=== PATIENT | male | born 1990 | race Hispanic/Latino ===

== ENCOUNTER 2017-08-20 16:04 | Emergency (ER) | payer SELFPAY ==
[2017-08-20] MEDS ORDERED: Sodium Chloride 0.9% 1,000 ML IV ONE (16:20)
[2017-08-20 16:35] LABS: BASO % 0.4 % (0.0-2.0); EOS % 0.2 % (0.0-4.0); HEMATOCRIT 38.8 % (35.0-51.0); LYMPH % 19.6 % (20.0-40.0); MEAN CELL VOLUME 90.2 fL (80.0-94.0); MEAN CORPUSCULAR HEMOGLOBIN 31.1 pg (27.0-31.0); MEAN CORPUSCULAR HGB CONC 34.5 g/dL (33.0-37.0); MEAN PLATELET VOLUME 7.6 fL (7.2-11.7); MONO # 0.8 K/uL (0.0-0.8); MONO % 7.5 % (0.0-10.0); RED CELL DISTRIBUTION WIDTH 13.8 % (11.5-14.5); WHITE BLOOD COUNT 10.4 K/uL (4.8-10.8)
[2017-08-20 16:50] LABS: ALB/GLOB RATIO 1.4 (1.0-2.1); ALCOHOL SERUM < 10 mg/dl (0-10); ALKALINE PHOSPHATASE 72 U/L (38-126); ALT/SGPT 34 U/L (21-72); AST/SGOT 28 U/L (17-59); BILIRUBIN,TOTAL 0.5 mg/dL (0.2-1.3); BLOOD UREA NITROGEN 24 mg/dL (9-20); CALCIUM 8.6 mg/dl (8.6-10.4); CARBON DIOXIDE 27 mmol/L (22-30); CHLORIDE 103 mmol/L (98-107); GFR AFRICAN-AMERICAN > 60; GLUCOSE,RANDOM 100 mg/dL (75-110); POTASSIUM 3.7 mmol/L (3.6-5.2); SODIUM 142 mmol/L (132-148); TOTAL PROTEIN 7.7 g/dL (6.3-8.3)
[2017-08-20] MEDS ORDERED: Sodium Chloride 0.9% 1,000 ML ONE (16:52)
[2017-08-20 17:09] VITALS: RESP 12
[2017-08-20 17:46] LABS: RBC URINE < 1 /hpf (0-3); URINE BACTERIA RARE (<OCC); URINE BILIRUBIN NEGATIVE (NEGATIVE); URINE BLOOD NEGATIVE (NEGATIVE); URINE COLOR Yellow (YELLOW); URINE GLUCOSE (UA) NORMAL (Normal); URINE KETONE 1+ mg/dL (NEGATIVE); URINE LEUKOCYTE ESTERASE NEG Leu/uL (Negative); URINE PROTEIN NEGATIVE (NEGATIVE); URINE UROBILINOGEN NORMAL mg/dL (0.2-1.0); WBC URINE 1 /hpf (0-5)
--- NOTE | 2017-08-20 18:33 | C.PDOC ---
History Of Present Illness Patient DELFINA for evaluation, found unresponsive in the street after apparently using IV heroin. Patient given intranasal Narcan in the field, woke up after med. He is drowsy appearing but admits to injecting heroin today. Time Seen by Provider: 08/20/17 16:17 Chief Complaint (Nursing): Substance Abuse History Per: Patient, EMS History/Exam Limitations: clinical condition Onset/Duration Of Symptoms: Unknown Modifying Factor(s): Narcotics Severity: Severe Involuntary Hold By: Emergency Physician Past Medical History Reviewed: Historical Data, Nursing Documentation, Vital Signs Vital Signs: Last Vital Signs Temp 97.8 F 08/20/17 16:15 Pulse 73 08/20/17 18:13 Resp 12 08/20/17 18:13 BP 117/64 08/20/17 18:13 Pulse Ox 95 08/20/17 18:34 - Medical History PMH: Seizures Family History: States: No Known Family Hx - Social History Hx Alcohol Use: No Hx Substance Use: Yes Review Of Systems Review Of Systems: ROS cannot be obtained secondary to pt's inabilty to answer questions. Physical Exam - Physical Exam Appears: Non-toxic, Other (drowsy, arousable to verbal stimuli) Skin: Normal Color, Warm, Dry Head: Atraumatic, Normacephalic Eye(s): bilateral: Other (pinpoint pupils B/L) Oral Mucosa: Moist Cardiovascular: Rhythm Regular Respiratory: Normal Breath Sounds, No Rales, No Rhonchi, No Wheezing Gastrointestinal/Abdominal: Normal Exam, Bowel Sounds, Soft, No Tenderness Extremity: Normal ROM, No Deformity, No Swelling Extremity: Bilateral: Atraumatic, Normal Color And Temperature, Normal ROM ED Course And Treatment - Laboratory Results Result Diagrams: 08/20/17 16:31 08/20/17 16:31 O2 Sat by Pulse Oximetry: 95 (RA) Pulse Ox Interpretation: Normal Progress Note: Blood work, UA, UDS ordered and reviewed. Patient given IV NS bolus. Pending sobriety. Disposition - Disposition Disposition Time: 19:00 Condition: STABLE Forms: [facility] (Lebanese) - Clinical Impression Clinical Impression: Heroin abuse Physician Patient Turnover Patient Signed Over To: Roberto Jensen Handoff Comments: pending sobriety
[2017-08-21 05:32] VITALS: BP 114/61; PULSE 70; TEMP 98.6; O2SAT 96
== END 2017-08-21 05:52 | disposition home or self-care (01) ==
LOC: C.ER 16:04
DX: F11.10 Opioid abuse, uncomplicated (principal)
CPT/HCPCS: 80053; 81001; 85025; 96360; 99285; G0480; J7040